=== PATIENT | female | born 1990 | race Caucasian/White ===

== ENCOUNTER 2020-01-21 08:01 | Day surgery (SDC) | payer MEDICAID, OTHER ==
[2020-01-18 10:37] LABS: APPEARANCE,URINE CLEAR; BILIRUBIN,URINE NEGATIVE (NEGATIVE); COLOR,URINE STRAW; GLUCOSE, URINE NEGATIVE (NEGATIVE); KETONES,URINE NEGATIVE (NEGATIVE); LEUKOCYTE ESTERASE,URINE NEGATIVE (NEGATIVE); NITRITE,URINE NEGATIVE (NEGATIVE); PROTEIN,URINE NEGATIVE (NEGATIVE); URINE SPECIFIC GRAVITY 1.006; UROBILINOGEN,URINE NEGATIVE mg/dL (<2.0)
[2020-01-18 10:38] LABS: HEMATOCRIT 42.2 % (36.0-47.0); HEMOGLOBIN 14.6 g/dL (12.0-15.5); MEAN CORPUSCULAR HEMOGLOBIN 30.2 pg (27.0-33.4); MEAN CORPUSCULAR HGB CONC 34.6 g/dL (32.0-36.0); MEAN CORPUSCULAR VOLUME 87 fl (80-97); PLATELET COUNT 240 10^3/uL (150-450); RED BLOOD COUNT 4.84 10^6/uL (3.72-5.28); RED CELL DISTRIBUTION WIDTH 12.2 % (11.5-14.0); WHITE BLOOD COUNT 4.7 10^3/uL (4.0-10.5)
[~2020-01-21 08:01] MED LIST: CEFAZOLIN 1 GM/D5W RTU 1 GM/50 ML RTUPB IV ONE; CEFAZOLIN 1 GM/D5W RTU 1 GM/50 ML RTUPB IV PRN; LACTATED RINGERS 1000 ML IV PRN; SCOPOLAMINE HYDROBROMIDE 1.5 MG PATCH.TD72 TD PRN
[2020-01-21] MEDS ORDERED: SCOPOLAMINE HYDROBROMIDE 1.5 MG PATCH.TD72 ONE (08:43)
[2020-01-21] MEDS ORDERED: FENTANYL CITRATE INJ/PF 100 MCG/2 ML AMPUL ONE ×2 (09:10→11:19)
[2020-01-21] MEDS ORDERED: PROPOFOL INJ 200 MG/20 ML VIAL IV ONE (09:11)
[2020-01-21] MEDS ORDERED: MIDAZOLAM 2 MG/2 ML INJ ONE (09:11)
[2020-01-21] MEDS ORDERED: DIPHENHYDRAMINE HCL 50 MG/ML VIAL ONE (10:06)
[2020-01-21] MEDS ORDERED: PHENYLEPHRINE HCL INJ/PF 10 MG/1 ML SDV ONE (10:06)
[2020-01-21] MEDS ORDERED: ROCURONIUM BROMIDE INJ 50 MG/5 ML VIAL IV ONE (10:06)
[2020-01-21] MEDS ORDERED: ONDANSETRON HCL INJ/PF 4 MG/2 ML SDV ONE (10:06)
[2020-01-21] MEDS ORDERED: KETOROLAC TROMETHAMINE 60 MG/2 ML SDV ONE (10:06)
[2020-01-21] MEDS ORDERED: DEXAMETHASONE SOD PHOSPHATE INJ 4 MG/1 ML VIAL ONE (10:06)
[2020-01-21] MEDS ORDERED: LIDOCAINE 2% INJ-PF (20 MG/ML) 2 ML AMPUL ONE (10:06)
[2020-01-21] MEDS ORDERED: SUGAMMADEX SODIUM 200 MG/2 ML SDV IV ONE (10:20)
[2020-01-21] MEDS ORDERED: OXYCODONE-ACETAMINOPHEN 5-325 MG TABLET PO PRN ×3 (11:26→11:53)
[2020-01-21] MEDS ORDERED: MEPERIDINE HCL/PF INJ 25 MG/1 ML DISP.SYRIN IV PRN (11:26)
[2020-01-21] MEDS ORDERED: MORPHINE SULFATE 10 MG/ML INJ IV PRN (11:26)
[2020-01-21] MEDS ORDERED: DIPHENHYDRAMINE HCL 50 MG/ML VIAL IV PRN (11:26)
[2020-01-21] MEDS ORDERED: FENTANYL CITRATE INJ/PF 100 MCG/2 ML AMPUL IV PRN ×3 (11:26)
[2020-01-21] MEDS ORDERED: PROMETHAZINE HCL INJ 25 MG/1 ML VIAL IV PRN ×2 (11:26)
[2020-01-21] MEDS ORDERED: MORPHINE SULFATE 10 MG/ML INJ ONE (11:35)
[2020-01-21] MEDS ORDERED: OXYCODONE-ACETAMINOPHEN 5-325 MG TABLET ONE (12:04)
[2020-01-21] MEDS ORDERED: ONDANSETRON HCL 8 MG TABLET PO SCH (14:00)
[2020-01-21] MEDS ORDERED: IBUPROFEN 800 MG TABLET PO SCH (14:00)
[2020-01-21 16:34] VITALS: BP 92/57
--- NOTE | 2020-02-15 08:05 | Operative Report ---
Operative Report DATE OF SURGERY: 01/21/20 PREOPERATIVE DIAGNOSIS: Desire for sterilization and menorrhagia POSTOPERATIVE DIAGNOSIS: Same OPERATION: Bilateral tubal occlusion using Filshie clips and endometrial ablation SURGEON: RILEY ALONSO ANESTHESIA: GA TISSUE REMOVED OR ALTERED: None ESTIMATED BLOOD LOSS: Negligible PROCEDURE: Patient placed in dorsal lithotomy position prepped draped sterile fashion. Speculum was placed cervix was visualized and grasped with a single-tooth tenaculum and Hulka tenaculum and was placed in single-tooth tenaculum was removed speculum is removed and the bladder drained with a catheter. Return to the abdomen where a subumbilical incision was made trocar was introduced with insufflation of the abdomen. Laparoscope was placed and visualization of the pelvis which appeared to be normal. Right fallopian tube was identified to the fimbria and a Filshie clip was placed on the proximal portion. The procedure was repeated on the left again noted to be identified to the fimbria are prior to and after banding. No other overt abnormalities were noted laparoscope was removed them deflated and the trocar sleeve was removed. Incision was closed with 0 Vicryl for fascia and 4-0 Vicryl subcutaneous for the skin. Attention was turned to the pelvis where a speculum was placed and the uterus sounded to a depth of 8 cm. IUD strings were not visible. Hysteroscopy was performed with removal of IUD. No acute abnormalities were noted in the endometrium. Ablation was then accomplished using NovaSure. Depth was 5.5 with was 3.5 and the ablation took 1 minute and 30 seconds. Repeat hysteroscopy polyp was formed with a good roman being noted. Patient was taken to recovery room in good condition.
--- NOTE | 2020-02-15 08:06 | Discharge Summary ---
Discharge Summary (SDC) - Discharge Date of Surgery: 01/21/20 Condition: Stable Forms: ASU Anesthesia D/C Instruction, Discharge POC-Surgical Service Treatment or Instructions: YOU HAD PERCOCET 5/325 MG, ONE TABLET, ON 01/21/20 AT 12:15 P.M. Please review your discharge paperwork. It contains important information. Please review anesthesia's care instructions. Stay safe. Please do not drive, drink alcohol, sign legal documents, or operate heavy machinery or appliances for the next 24 hours. Please follow the physician's care instructions. Call the physician's office with questions or concerns that arise before your follow-up appointment. Pelvic rest means do not put anything into your vagina like tampons, douche; no sex until otherwise directed by the physician. You can use throat lozenges, ice chips, or gargle with warm salt water. Go to the emergency room for difficulty breathing, sudden chest pain, sudden severe abdominal pain, vomiting that does not stop, difficulty urinating or unable to urinate 6-8 hours after your procedure. Please report signs of infection such as pus, fever over 101F, foul drainage, increasing redness from your surgical sites. Prescriptions: Ibuprofen [Ibu] 800 mg PO TID 30 Days #90 tablet Oxycodone HCl/Acetaminophen [Percocet 5-325 mg Tablet] 1 tab PO Q6H PRN 3 Days #12 tab PRN Reason: Referrals: RILEY ALONSO MD [ACTIVE STAFF] - (Please keep your follow-up appointment.) Respiratory Treatments at Home: Deep Breathing/Coughing Discharge Activity: Activity As Tolerated, No Lifting Over 10 Pounds, Pelvic Rest, No tub bath Home Care Assistance: None Needed, Provided by Family Report the Following to Your Physician Immediately: Shortness of Breath, Vomiting, Increase in Pain, Fever over 101 Degrees, Unusual Bleeding, Redness, Large Clots, IV Site Infection Signs
== END 2020-01-21 14:00 | disposition home or self-care (01) ==
LOC: OROUT 08:01
PROVIDERS: ATTEND Obstetrics & Gynecology Gynecology
DX: Z30.2 Encounter for sterilization (principal); N93.8 Other specified abnormal uterine and vaginal bleeding; Z87.891 Personal history of nicotine dependence; Z30.432 Encounter for removal of intrauterine contraceptive device
CPT/HCPCS: 58579; 58671; 58563; 36415; 85027; 87635; 81025; 81001; 00851; J2250; J0690; J3490 ×3; J1100; J1200; J1885; J3010; J2270; J2370; J2405; J2704; C9803; 851